=== PATIENT | male | born 1930 | race Caucasian/White ===

== ENCOUNTER 2017-03-11 10:57 | Emergency (ER) | payer MEDICARE ==
[~2017-03-11] VITALS: Ht 182.9 cm; Wt 108.0 kg
[2017-03-11] MEDS ORDERED: WARF2TAB7 PO (11:19)
--- NOTE | 2017-03-11 13:00 | RAD ---
Indication fall. Closed head injury. Neck injury and pain. The head and cervical spine were evaluated. Images of the cervical spine were reformatted in the coronal and sagittal planes. No prior imaging of the head is available. CT head: Findings Soft tissue tissue swelling over the left parietal and occipital bones extending to the vertex is noted. No acute or significant calvarial finding is seen. The visualized paranasal sinuses appear unremarkable. There is some underlying atrophy. There is no subdural or epidural hematoma. 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 No hemorrhage is seen. No acute intracranial finding is apparent. CT cervical spine: Findings The lung apices are clear. A significant soft tissue finding in the visualized neck is not seen. There are some degenerative changes in the cervical spine. Flowing osteophytes are seen at several levels. Facet degenerative changes are seen. An acute finding is not seen. There is a focus of demineralization in the C6 vertebral body. This is likely incidental. 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 No acute finding seen. No acute finding in the head. PQRS Compliance Statement: One or more of the following individualized dose reduction techniques were utilized for this examination: 1. Automated exposure control 2. Adjustment of the mA and/or kV according to patient size 3. Use of iterative reconstruction technique
--- NOTE | 2017-03-11 13:20 | PHYS DOC ---
General Chief Complaint: MECHANICAL FALL Stated Complaint: FALL Time Seen by MD: 11:01 Source: patient, family, RN/MD Exam Limitations: no limitations Problems: History of Present Illness Initial Comments Patient is an 86-year-old male who comes to the ED sent by Dr. Wooten his primary care physician for CT evaluation of the fall injury. Patient states he was following up at Dr. Wooten's office today to discuss sleep medication prescription, he says instead of using the ramp he chose to try to go up the curb. He was able to place the walker up on the curb and as he tried to step up himself lost his balance and fell backwards hitting his head on the concrete. The fall was witnessed by his spouse and another passerby, they deny any loss of consciousness or seizure activity and immediately assisted the patient in sitting up. The doctor's office staff including Dr. Wooten responded to the parking lot and assisted the patient into the car and advised them to come straight to the ED for CT evaluation. Dr. Wooten did call to get noticed to ED staff that the patient was en route and is requesting the patient be evaluated with CT. Reviewing the patient's medical history it is revealed that he takes warfarin for DVT he was scheduled to get INR done yesterday but did not. Typically his INR runs 2.6. On arrival he has a hematoma at the occiput and some generalized nonspecific neck discomfort no midline or bony pain. He does appear to have some memory deficit immediately before and after the fall, denies photophobia and nausea but does admit to some dizziness and a global headache described as throbbing and moderate to severe. He requests Tylenol only for this discomfort. He denies any new focal neuro deficits. Tetanus status is up-to-date. Occurred: just prior to arrival Severity: moderate Injuries/Pain Location: head Context: lost balance Loss of Consciousness: no loss of consciousness Modifying Factors: worse with jarring, worse with movement, improves with rest Associated Symptoms: dizziness, headache Allergies: Coded Allergies: Penicillins (Verified Allergy, Unknown, 03/11/17) Past Medical History Medical History: other (DVT, coronary artery disease, generalized weakness, chronic anticoagulation) Surgical History: noncontributory Social History Smoker: quit greater than 1 year Alcohol: none Drugs: none Review of Systems Constitutional: denies chills, denies diaphoresis, denies fever, malaise Eyes: denies blindness, denies blurred vision, denies decreased acuity, denies photophobia Ears, Nose, Mouth, Throat: denies ear discharge, denies nose discharge, denies epistaxis, denies mouth swelling Respiratory: denies cough, denies shortness of breath, denies wheezing Cardiovascular: denies chest pain, denies palpitations, denies syncope Gastrointestinal: denies diarrhea, denies nausea, denies vomiting Genitourinary: denies dysuria, denies frequency, denies hematuria Musculoskeletal: denies back pain, denies joint swelling (plan discussed with Harshal Goodrich because I can't do this and talk to so), neck pain Psychiatric/Neurological: headache, denies numbness, denies paresthesia, denies weakness Physical Exam General Appearance: WD/WN, no apparent distress Head: other (negative Su sign, negative raccoon eyes, no ear or nose discharge no fluid behind TMs bilaterally, there is a 4 cm hematoma at the occiput with mild abrasion no bleeding no palpable bony deformity or step-off) Eyes: bilateral eye normal inspection, bilateral eye PERRL, bilateral eye EOMI Ears, Nose, Mouth, Throat: hearing grossly normal (chest), no evidence of ENT injury, no dental injury ( clear) Neck: non-tender, full range of motion ( with no) Cardiovascular/Respiratory: normal peripheral pulses, normal breath sounds ( what is that at [facility] there are no) Gastrointestinal: non tender, soft Back: no CVA tenderness, no vertebral tenderness Extremities: no evidence of injury, non-tender (here) Neurologic/Psychiatric: 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 Soft tissue swelling and hematoma are noted 1310: I called Dr Wooten discussed findings he recommended patient go home and ice his head continue current medications and follow-up with him on Tuesday. I discussed signs and symptoms to monitor and indication for urgent return. I discussed this with the patient and his spouse expressed agreement and understanding. Departure Time of Disposition: 13:18 Disposition: HOME, SELF-CARE Diagnosis: concussion, hematoma, fall, anticoagulation Condition: GOOD Patient Instructions: Concussion and Brain Injury, [id number], Fall Prevention and Home Safety, Fysu-of-Miss, Hematoma, [id number] Additional Instructions: Use an assistive device and request assistance with all standing and walking until you follow-up with Dr. Wooten. Ice to the back of your head 15 minutes 4-6 times daily for the next 48 hours. [id number] Tylenol for discomfort as needed. Call Dr. Wooten's office today to schedule an appointment for Tuesday to follow up Return to ED with new or changing symptoms. MARCIA BURCH DO Mar 11, 2017 13:19
[2017-03-11] MEDS: ACETAMINOPHEN 500 MG TABLET PO ONE (13:21)
[2017-03-11 13:35] VITALS: BP 123/68
== END 2017-03-11 13:35 | disposition home or self-care (01) ==
LOC: ER 10:57
DX: S06.0X0A Concussion without loss of consciousness, initial encounter (principal); S00.83XA Contusion of other part of head, initial encounter; M54.2 Cervicalgia; Z79.01 Long term (current) use of anticoagulants; I25.10 Atherosclerotic heart disease of native coronary artery without angina pectoris; Z86.718 Personal history of other venous thrombosis and embolism; Z87.891 Personal history of nicotine dependence; Z88.0 Allergy status to penicillin; W18.09XA Striking against other object with subsequent fall, initial encounter; Y93.89 Activity, other specified; Y99.8 Other external cause status; Y92.89 Other specified places as the place of occurrence of the external cause
CPT/HCPCS: 36415; 70450; 72125; 85610; 85730; 99285-25